=== PATIENT | female | born 1980 | race Two or more races ===

== ENCOUNTER → 2021-04-05 12:27 | Outpatient (CLI) | payer SELFPAY ==
--- NOTE | ~2021-04-05 | US_ITS ---
EXAMINATION: US OB <= 14 weeks fetus DATE: 04/05/2021 13:08 INDICATION: Encounter for screening for uncertain dates TECHNIQUE: Real-time pelvic transabdominal and transvaginal ultrasound was performed. COMPARISON: None. FINDINGS: The uterus measures 12.3 x 7.3 x 9.0 cm. There is an intrauterine gestational sac. A yolk sac is identified. heart motion is identified measuring 172 beats per minute (bpm) by M-mode Do ppler. The crown rump length measures 5.3 cm , which correlates with an estimated gestational a ge of 12 weeks and 0 day(s) (+/-) 8 day(s). There is no free fluid in the pelvis. IMPRESSION: 1. Live intrauterine with an estimated gestational age of 12 weeks and 0 day(s) (+/-) 8 day (s) and an estimated delivery date of 10/18/2021. Reviewed, dictated and finalized at location A. IMPRESSION: 1. Live intrauterine with an estimated gestational age of 12 weeks an d 0 day(s) (+/-) 8 day(s) and an estimated delivery date of 10/18/2021.
== END ==
PROVIDERS: Visit Provider Nurse Practitioner
DX: Z34.91 Encounter for supervision of normal pregnancy, unspecified, first trimester (principal); Z3A.12 12 weeks gestation of pregnancy
CPT/HCPCS: 76801

== ENCOUNTER → 2021-07-04 11:06 | Outpatient (CLI) | payer SELFPAY ==
--- NOTE | ~2021-07-04 | US_ITS ---
EXAMINATION: US OB /maternal detail DATE: 07/04/2021 11:48 INDICATION: anatomic survey. TECHNIQUE: Real-time ultrasound of the pelvis was performed. COMPARISON: Ultrasound 04/05/2021 FINDINGS: There is a single living fetus in breech presentation. The placenta is left posterior, 7.6 cm from t he cervix. heart rate is 139 beats per minute (bpm). The amniotic fluid volume is subjectively normal. The following biometric data were obtained: Biparietal diameter (BPD): 6.3 cm; head circumference (HC): 23.5 cm; abdominal circumference (AC): 20 .2 cm; femur length (FL): 4.8 cm. These measurements are concordant. Estimated weight is 810 g +/- 121 g, which correlates with 67th percentile when 10/18/21 is used as estimated date of delivery. As single measurements, these parameters are each equal to the following estimated gestational ages w ith ranges of +/- 2 standard deviations: BPD: 25 weeks 3 days (23 weeks 2 days - 27 weeks 5 days). HC: 25 weeks 3 days (23 weeks 3 days - 27 weeks 4 days). AC: 24 weeks 6 days (22 weeks 5 days - 27 weeks 0 days). FL: 26 weeks 2 days (24 weeks 1 days - 28 weeks 2 days). estimated gestational age based solely on measurements from this exam is 25 weeks 4 days +/- 1 weeks 5 days. The cerebral ventricles, cerebellum, cisterna magna, lip, and visualized portions of the spine are no rmal. The four-chamber heart view is normal. The outflow tracts are not well visualized. The diaphrag m, stomach, kidneys, and bladder are normal. There are two umbilical arteries to yield a 3-vessel cor d. The cord insertion is normal. IMPRESSION: 1. Single living fetus in breech presentation. 2. Estimated weight is 810 g +/- 121 g, which correlates with 67th percentile when 10/18/21 is used as estimated date of delivery. This date was set by ultrasound on 04/05/2021. 3. Normal anatomic survey. Reviewed, dictated and finalized at location A. R REPAIRER IMPRESSION: 1. Single living fetus in breech presentation. 2. Estimated weight is 810 g +/- 121 g, which correlates with 67th perce ntile when 10/18/21 is used as estimated date of delivery. This date was set by ultrasound on 04/05/2021. 3. Normal anatomic survey.
== END ==
PROVIDERS: Visit Provider Obstetrics & Gynecology Gynecology
DX: Z34.92 Encounter for supervision of normal pregnancy, unspecified, second trimester (principal); Z3A.25 25 weeks gestation of pregnancy
CPT/HCPCS: 76805

== ENCOUNTER 2021-08-14 08:15 | Outpatient (CLI) | payer OTHER, SELFPAY ==
--- NOTE | ~2021-08-14 | US_ITS ---
EXAMINATION: US OB follow up EXAM DATE: 08/14/2021 09:08 INDICATION: F/U On Outflow Tracts Not Well Visualized Outflow Tracts Not Well Visualized. 3rd trimes ter. TECHNIQUE: Pelvic obstetrical transabdominal sonogram was performed by a technologist. There are mu ltiple grayscale and Doppler images available for interpretation. Comparison is made to prior examina tion from 07/04/2021. FINDINGS: There is a single fetus identified in vertex presentation with a heart rate of 152 beats pe r minute. The placenta is located in the fundal position. There is no sonographic evidence of retrop lacental hemorrhage identified. There is subjectively expected amount of amniotic fluid. Cardiac out flow tracts were identified, sonographically normal. IMPRESSION: 1. Single fetus in vertex presentation with heart rate 152 beats per minute. 2. Sonographically normal cardiac outflow tracts. Reviewed, dictated and finalized at location A. ACKER
[2021-08-14 10:39] LABS: Hematocrit 38.6 % (37.0-47.0)
[2021-08-14 10:57] LABS: Glucose 1 Hour PP 50gm Dose 89 mg/dL
[2021-08-14 11:31] LABS: HIV 1/2 Ab P24 Ag Result Negative (Negative)
[2021-08-14 13:53] LABS: Vitamin D 25 Hydroxy 38.2 ng/mL
== END 2021-08-14 08:16 | disposition home or self-care (01) ==
PROVIDERS: Visit Provider Nurse Practitioner
DX: Z34.93 Encounter for supervision of normal pregnancy, unspecified, third trimester (principal); E55.9 Vitamin D deficiency, unspecified; Z3A.00 Weeks of gestation of pregnancy not specified
CPT/HCPCS: 36415; 76816; 82306; 82947; 85014; 85018; 86703; G0432

== ENCOUNTER 2021-09-19 15:23 | Outpatient (CLI) | payer OTHER, SELFPAY ==
--- NOTE | ~2021-09-19 | US_ITS ---
EXAMINATION: US OB follow up DATE: 09/19/2021 16:18 INDICATION: Estimated size greater than expected for estimated gestational age TECHNIQUE: Real-time ultrasound of the pelvis was performed. The interpreting radiologist was not pre sent for the study. COMPARISON: 08/14/2021 FINDINGS: There is a single living fetus in vertex presentation. The placenta is anterior. heart rate is 136 beats per minute (bpm). The amniotic fluid index is 13.3 cm, which is normal (5th%-95%: 7.9-24. 9 cm at 35 weeks estimated gestational age). The following biometric data were obtained: BPD: 8.6 cm -> 34 weeks 4 days Head circumference: 32.7 cm -> 37 weeks 1 days Abdominal circumference: 30.8 cm -> 34 weeks 5 days Femur length: 7.2 cm -> 36 weeks 4 days These measurements are concordant. Head circumference to abdominal circumference ratio: 1.06 (normal range 0.93-1.09). Estimated weight: 2695 g (+/-) 404 g or 5 lbs. 15 oz. (+/-) 14 oz. IMPRESSION: 1. Single living fetus in vertex presentation with heart rate of 136 bpm. 2. Normal amniotic fluid index of 13.3 cm. 3. Estimated weight is 47th percentile by Hadlock criteria when 10/20/2021 is used as the estima dotty date of delivery (JENNY). Please correlate with clinical information or earlier ultrasounds for mos t accurate JENNY. Reviewed, dictated and finalized at location A. ERS COMPENSATION ANALYST IMPRESSION: 1. Single living fetus in vertex presentation with heart rate of 136 bpm. 2. Normal amniotic fluid index of 13.3 cm. 3. Estimated weight is 47th percentile by Hadlock criteria when 10/20/2021 is used as the estimated date of delivery (JENNY). Please correlate with clinica l information or earlier ultrasounds for most accurate JENNY.
== END 2021-09-19 15:24 | disposition home or self-care (01) ==
LOC: ANHIMG 15:31
PROVIDERS: Visit Provider Obstetrics & Gynecology Gynecology
DX: O36.63X0 Maternal care for excessive fetal growth, third trimester, not applicable or unspecified (principal); Z3A.00 Weeks of gestation of pregnancy not specified
CPT/HCPCS: 76816

== ENCOUNTER 2021-10-13 04:58 | Inpatient (IN) | payer OTHER, SELFPAY ==
--- NOTE | 2021-10-09 16:07 | PC.NURSE ---
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
[2021-10-13] VITALS (107 sets, daily range): BP systolic 110–170; BP diastolic 44–130; PULSE 18–131; RESP 18; TEMP 36.5–37.3; O2SAT 91–100; BMI 59.4
[2021-10-13] MEDS: OXYTOCIN 30 UNITS/NS 500 ML 30 UNITS/500 ML BAG IV CONT (05:38)
[2021-10-13] MEDS: LACTATED RINGERS 1,000 ML 125 ML IV CONT ×3 (05:39→20:48)
--- NOTE | 2021-10-13 05:42 | LDADM ---
This patient, Ute Morrissey, was admitted to Labor/Delivery/Recovery 109 on 10/13/21 at 04:58. Plans for labor, pain management and were discussed with patient. Patient/family oriented to hospital policies and general routines including ID bracelet, bed and alarms, visiting hours, pain management, procedures, bathroom and other care routines, personal items, smoking policy, room service/diet and guest tray routines, infant security routines, and visiting hours. Patient/Family are encouraged to report perceived risks to care and to ask questions if they do not understand what they are told or what they should do. See OBIX for further documentation.
[2021-10-13 06:13] LABS: Basophils Percent Auto 0.2 % (0.2-1.2); Eosinophils Percent Auto 0.1 % (0-4.4); Hematocrit 41.6 % (37.0-47.0); Hemoglobin 13.8 g/dL (12.0-15.0); Immature Granulocyte Absolute 0.04 K/mm3 (0.00-0.031); Immature Granulocyte Percent A 0.5 % (0-0.5); Lymphocytes Absolute Auto 2.87 K/mm3 (0.9-3.2); Lymphocytes Percent Auto 33.3 % (18.3-44.2); Mean Corpuscular HGB Conc 33.2 g/dl (32-36); Mean Corpuscular Hemoglobin 30.5 pg (26-34); Mean Platelet Volume 10.2 fl (7.4-10.4); Monocytes Absolute Auto 0.4 K/mm3 (0.1-0.6); Monocytes Percent Auto 4.6 % (2.6-8.5); Neutrophils Absolute Auto 5.3 K/mm3 (1.3-6.7); Neutrophils Percent Auto 61.3 % (45.5-73.1); Platelet Count Result 329 k/mm3 (150-375); Red Blood Count 4.52 M/mm3 (4.2-5.4); Red Cell Distribution Width 13.7 % (11.5-14.5); White Blood Count 8.6 K/mm3 (4.5-10.0)
--- NOTE | 2021-10-13 07:52 | WPDOBADMIT ---
Obstetrics - Admit Note Admission Note: record reviewed. No pertinent additions to the history and/or any subsequent changes in the physical findings that are not consistent with the expected course of the were found. Additions to the history and/or subsequent changes in the physical findings follow. Here at 39 wks for MIL. Cervix 1-2/5-/-2 AROM with clear fluid. FHTs reactive.
--- NOTE | 2021-10-13 09:12 | P.PNAN_ITS ---
Anes - Eval Pre Procedure Procedure: labor epidural Date/Time: 10/13/21 09:12 Surgeon: joon Preop Diagnosis: pain during labor Pre Op Diagnosis: IOL Patient Data Age: 41 Gender: F Height: 1.68 m Weight: 167 kg Last Vital Signs Temp 36.6 C 10/13/21 08:53 Pulse 68 10/13/21 09:01 BP 127/73 10/13/21 09:01 Allergies Allergy/AdvReac Type Severity Reaction Status Date / Time No Known Allergies Allergy Verified 10/09/21 14:56 Home Medications Medication Instructions Recorded Confirmed Type [id number] fum-folic ac-om3 1 pkg PO DAILY 10/13/21 10/13/21 History [Daily ] Laboratory Tests 10/13/21 10/13/21 10/13/21 05:28 05:28 05:28 WBC 8.6 K/mm3 K/mm3 (4.5-10.0) RBC 4.52 M/mm3 M/mm3 (4.2-5.4) Hgb 13.8 g/dL g/dL (12.0-15.0) Hct 41.6 % % (37.0-47.0) MCV 92.0 fl fl (80-100) MCH 30.5 pg pg (26-34) MCHC 33.2 g/dl g/dl (32-36) RDW 13.7 % % (11.5-14.5) Plt Count 329 k/mm3 k/mm3 (150-375) MPV 10.2 fl fl (7.4-10.4) Immature Gran % (Auto) 0.5 % % (0-0.5) Neut % (Auto) 61.3 % % (45.5-73.1) Lymph % (Auto) 33.3 % % (18.3-44.2) [place] % (Auto) 4.6 % % (2.6-8.5) Eos % (Auto) 0.1 % % (0-4.4) Baso % (Auto) 0.2 % % (0.2-1.2) Lymph # (Auto) 2.87 K/mm3 K/mm3 (0.9-3.2) [place] # (Auto) 0.4 K/mm3 K/mm3 (0.1-0.6) Eos # (Auto) 0.0 K/mm3 K/mm3 (0-0.3) Baso # (Auto) 0.0 K/mm3 K/mm3 (0.0-0.1) Abs Immat Gran (auto) 0.04 K/mm3 H K/mm3 (0.00-0.031) Absolute Neuts (auto) 5.3 K/mm3 K/mm3 (1.3-6.7) Absolute Nucleated RBC 0.0 K/mm3 K/mm3 (0.0-0.012) Nucleated RBC % 0.0 % % (0.0-0.2) RPR Pending Blood Type O Positive Antibody Screen Negative Patient hx anesthesia problems: none Family hx anesthesia problems: none Results Review: All pre-operative results and documents have been reviewed as part of the pre-operative evaluation. [facility] Past Medical History Medical History (Updated 10/13/21 @ 09:13 by Ievt Be CRNA) IUP (intrauterine ), incidental Morbid obesity with BMI of 50.0-59.9, adult Family History Family History (Updated 10/09/21 @ 15:02 by Bereket Bo RN) Grandparent Cancer Grandparent Diabetes mellitus Social History Social History Smoking status: Never smoker Second hand tobacco smoke exposure: No Substance use: never Spiritual care concerns: No Exam Day of Procedure 10/13/21 09:12
[2021-10-13 23:27] LABS: Hematocrit 42.4 % (37.0-47.0); Hemoglobin 14.1 g/dL (12.0-15.0); Mean Corpuscular HGB Conc 33.3 g/dl (32-36); Mean Corpuscular Hemoglobin 30.9 pg (26-34); Mean Platelet Volume 9.6 fl (7.4-10.4); Platelet Count Result 295 k/mm3 (150-375); Red Blood Count 4.56 M/mm3 (4.2-5.4); Red Cell Distribution Width 13.6 % (11.5-14.5); White Blood Count 14.7 K/mm3 (4.5-10.0)
[2021-10-13 23:37] LABS: Alanine Aminotransferase 22 U/L (4-35); Albumin Level 3.6 g/dL (3.5-5.1); Alkaline Phosphatase 157 U/L (38-126); Anion Gap 11 mmol/L (8-16); Aspartate Amino Transferase 27 U/L (14-36); Bilirubin,Total 0.9 mg/dL (0.2-1.3); Blood Urea Nitrogen 16 mg/dL (7-17); Calcium 7.8 mg/dL (8.4-10.2); Carbon Dioxide 19 mmol/L (22-30); Chloride 104 mmol/L (98-107); Estimated CRCL calculation 119 ml/min; Estimated Glomerular Filt Rate > 60; Glucose 119 mg/dL (65-110); Potassium 4.1 mmol/L (3.4-5.0); Sodium 134 mmol/L (137-145); Uric Acid 6.5 mg/dL (2.5-7.5)
[2021-10-14] VITALS (18 sets, daily range): BP systolic 89–150; BP diastolic 27–99; PULSE 80–180; RESP 16; TEMP 36.3–37.4; O2SAT 98
--- NOTE | 2021-10-14 00:01 | P.PCNOB_ITS ---
OB - Delivery Note Procedure Delivery date: 10/13/21 Procedure: Induction method: AROM and Per Pitocin Protocol Delivery monitor: External FHT and External Uterine Route of delivery: Laceration Description: Perineal - 2nd Degree Delivery repair: vicryl (3-0) Specimen: Yes (placenta) Quantitative Blood Loss (ml): 100 Anesthesia type: Epidural Disposition: Floor [place] Baby Date of : 10/13/21 Weeks of gestation at delivery: 39 Infant gender: Male Weight (pounds): 6 Weight (ounces): 12 position: Right Occiput Anterior Placenta delivery description: Spontaneous Cord Vessel Description: 3 Vessels score one minute: 8 score five minutes: 9
--- NOTE | 2021-10-14 00:05 | PM.OBDSVD ---
DS: Admitting Diagnosis Discharge Date 10/15/21 Admitting Diagnosis 39 wks MIL DS: Discharge Diagnosis Discharge Diagnosis (1) (normal spontaneous vaginal delivery): Code(s): O80 - Encounter for full-term uncomplicated delivery Status: Acute OB - DS: Summary OB Procedures : Ultrasound OB Procedures Intrapartum: Spontaneous Vag Delivery OB Procedures: : None Peripartum Data Infant Delivery Method: Natural Vaginal Laceration Description: Perineal - 2nd Degree complications: none Status at Discharge Functional status at discharge: independent ambulation Overall status at discharge: patient is progressing back to baseline Time Spent with Patient Time attestation: Total time spent providing and/or coordinating discharge services: DS: Data Data Completed and Pending Labs on day of discharge: Labs from last 24 hours 10/13/21 10/13/21 10/13/21 23:21 23:21 05:28 WBC 14.7 H RBC 4.56 Hgb 14.1 Hct 42.4 MCV 93.0 MCH 30.9 MCHC 33.3 RDW 13.6 Plt Count 295 MPV 9.6 Immature Gran % (Auto) Neut % (Auto) Lymph % (Auto) [place] % (Auto) Eos % (Auto) Baso % (Auto) Lymph # (Auto) [place] # (Auto) Eos # (Auto) Baso # (Auto) Abs Immat Gran (auto) Absolute Neuts (auto) Absolute Nucleated RBC Nucleated RBC % Sodium 134 L Potassium 4.1 Chloride 104 Carbon Dioxide 19 L Anion Gap 11 BUN 16 Creatinine 0.90 Estim Creat Clear Calc 119 Estimated GFR > 60 Glucose 119 H Uric Acid 6.5 Calcium 7.8 L Total Bilirubin 0.9 AST 27 ALT 22 Alkaline Phosphatase 157 H Total Protein 7.0 Albumin 3.6 RPR Blood Type O Positive Antibody Screen Negative 10/13/21 10/13/21 05:28 05:28 WBC 8.6 RBC 4.52 Hgb 13.8 Hct 41.6 MCV 92.0 MCH 30.5 MCHC 33.2 RDW 13.7 Plt Count 329 MPV 10.2 Immature Gran % (Auto) 0.5 Neut % (Auto) 61.3 Lymph % (Auto) 33.3 [place] % (Auto) 4.6 Eos % (Auto) 0.1 Baso % (Auto) 0.2 Lymph # (Auto) 2.87 [place] # (Auto) 0.4 Eos # (Auto) 0.0 Baso # (Auto) 0.0 Abs Immat Gran (auto) 0.04 H Absolute Neuts (auto) 5.3 Absolute Nucleated RBC 0.0 Nucleated RBC % 0.0 Sodium Potassium Chloride Carbon Dioxide Anion Gap BUN Creatinine Estim Creat Clear Calc Estimated GFR Glucose Uric Acid Calcium Total Bilirubin AST ALT Alkaline Phosphatase Total Protein Albumin RPR Pending Blood Type Antibody Screen Discharge Plan Discharge Attending physician on discharge: Rasheeda Agarwal Discharging Clinician: Rasheeda Agarwal Anticipated Discharge Date/Time: 10/15/21 00:06 Patient Disposition: Home, Self-Care Activity: may shower and pelvic rest Diet: regular Patient Instructions: Antibiotic Form Stand Alone Forms: General Discharge Information Follow-up/Referrals: Rasheeda Agarwal MD [Physician] - 6 Weeks Discharge Medications: Continued Daily [id number] mg-mcg-mg Combo Pack 1 pkg PO DAILY RF: 0 Date of admission: 10/13/21 04:58 Primary Care Provider: PHYSICIAN,KEY MAKER Admitting Provider: Rasheeda Agarwal Attending physician on admission: Rasheeda Agarwal Condition: Stable Health Concerns: Plans BTL
[2021-10-14] MEDS: OXYTOCIN 30 UNITS/NS 500 ML 30 UNITS/500 ML BAG 125 UNITS IV CONT (00:09)
--- NOTE | 2021-10-14 03:37 | PC.NURSE ---
Rn educated patient on fall precautions and to call out when needing to go to the bathroom so an RN can be present. Patient verbalized understanding and agrees to plan of care. RN to bedside to assist patient to the bathroom for the first time. Patient found on the bathroom toilet upon arrival. She reports that she couldn't wait for a nurse to help her. RN educated patient that she needs to call out when needing to get up for assistance due to her epidural wearing off.
[2021-10-14] MEDS: IBUPROFEN 600 MG TABLET PO ×3 (05:15→22:56)
[2021-10-14] MEDS: BENZOCAINE 20% AER SPR (*SP) 56 GM CAN 1 SPRAY TOPICAL (05:16)
[2021-10-14] MEDS: WITCH HAZEL 40 PADS 1 PAD TOPICAL (05:16)
[2021-10-14 07:54] LABS: Rapid Plasma Reagin Non-Reactive (NonReactive)
[2021-10-14] MEDS: DOCUSATE SODIUM 100 MG CAPSULE PO ×2 (09:15→17:25)
[2021-10-14] MEDS: ACETAMINOPHEN 325 MG TABLET 650 MG PO ×2 (09:35→17:24)
[2021-10-14] MEDS: POLYSACCHARIDE IRON COMPLEX 150 MG CAPSULE PO (09:35)
--- NOTE | 2021-10-14 10:27 | PM.OBPNVD ---
OB - PN: Subj Subjective Date/time seen: 10/14/21 10:27 Patient comments: no complaints and pain well controlled baby status: doing well OB - PN: Obj Data Labs CBC & Chem 7: 10/13/21 23:21 10/13/21 23:21 Labs: Laboratory Results - last 24 hr 10/13/21 10/13/21 10/13/21 05:28 23:21 23:21 WBC 14.7 H RBC 4.56 Hgb 14.1 Hct 42.4 MCV 93.0 MCH 30.9 MCHC 33.3 RDW 13.6 Plt Count 295 MPV 9.6 Sodium 134 L Potassium 4.1 Chloride 104 Carbon Dioxide 19 L Anion Gap 11 BUN 16 Creatinine 0.90 Estim Creat Clear Calc 119 Estimated GFR > 60 Glucose 119 H Uric Acid 6.5 Calcium 7.8 L Total Bilirubin 0.9 AST 27 ALT 22 Alkaline Phosphatase 157 H Total Protein 7.0 Albumin 3.6 RPR Non-reactive OB - PN A/P Plan day: 1 Plan: routine care Time Spent With Patient Time: Total time spent is greater than 50% in coordination of care (as documented) at patient's floor/unit and/or counseling patient: Exam : Bimanual exam- vagina & uterus: other (Uterus firm, nt @U)
--- NOTE | 2021-10-14 15:09 | PC.NURSE ---
Breast pump provided due to ineffective feeding. Reviewed information regarding pump care, hand washing, nipple care and pumping 8 times in 24 hours (1-2 at night) for 10-15 minutes. Discussed she should pump after feedings/ feeding attempts If after feeding, rest for 5-10 minutes. Get something to eat/drink, use the restroom, then pump. Collection and storage of breastmilk per mom and baby guide. Encouraged mom to place infant skin to skin, breast massage and use hand expression and/or a breast pump in a relaxing atmosphere. Reviewed recording pumping schedule on the feeding sheet or pumping log. Referred to the visual handout along with the mom and baby guide as a resource and when to call a provider.
--- NOTE | 2021-10-15 03:02 | PC.NURSE ---
Daylight Savings Time For Daylight Savings Time Beginning in the Spring - Clocks are moved ahead. For [facility], the time of change occurs at 0200 hrs. Time is taken from the server service assistant. This entry on the patient's chart recognizes the change in time reflected during documentation. Example: 2 entries for vital signs may be charted for 0200 hrs.
[2021-10-15] MEDS: ACETAMINOPHEN 325 MG TABLET 650 MG PO (05:20)
[2021-10-15 08:00] VITALS: BP 137/78; PULSE 76; RESP 18; TEMP 36.7
[2021-10-15] MEDS: IBUPROFEN 600 MG TABLET PO (08:05)
[2021-10-15] MEDS: DOCUSATE SODIUM 100 MG CAPSULE PO (08:06)
[2021-10-15] MEDS: MULTIVIT/MIN/PREN/FOL AC/IRON TABLET 1 TAB PO (08:06)
--- NOTE | 2021-10-15 09:26 | PM.OBPNVD ---
OB - PN: Subj Subjective Date/time seen: 10/15/21 09:26 Patient comments: no complaints and pain well controlled baby status: doing well OB - PN: Obj Data Labs CBC & Chem 7: 10/13/21 23:21 10/13/21 23:21 OB - PN A/P Plan day: 2 Plan: routine care, discharge home, follow up 6 weeks and other (Plans BTL but has not signed papers yet. Declines interval BC.) Time Spent With Patient Time: Total time spent is greater than 50% in coordination of care (as documented) at patient's floor/unit and/or counseling patient: Exam : Bimanual exam- vagina & uterus: other (Uterus firm, nt @U)
--- NOTE | 2021-10-15 09:34 | WPDANLDNPN2 ---
Anes-Prog Note L&D-Neuraxial Date/Time: 10/15/21 09:34 Patient feedback: Patient satisfied with post-operative pain management.
== END 2021-10-15 11:15 | disposition home or self-care (01) | DRG 560 ==
LOC: ANHLDR 10-14 00:07 → ANHOB2 10-14 04:11
PROVIDERS: Admitting Provider Obstetrics & Gynecology Gynecology; Visit Provider Obstetrics & Gynecology Gynecology
DX: O36.8330 Maternal care for abnormalities of the fetal heart rate or rhythm, third trimester, not applicable or unspecified (principal); Z37.0 Single live birth; Z3A.39 39 weeks gestation of pregnancy; O70.1 Second degree perineal laceration during delivery
CPT/HCPCS: 36415; 80053; 84550; 85025; 85027; 86592; 86850; 86900; 86901; 88307; A9270; J2590; J2795; J7120

== ENCOUNTER 2024-01-10 22:40 | Emergency (ER) | payer OTHER, SELFPAY ==
[2024-01-10 22:47] VITALS: BP 162/96; PULSE 93; RESP 20; TEMP 36.8; O2SAT 98
--- NOTE | 2024-01-10 23:38 | ED.GENADULT ---
HPI - General Adult General Chief complaint: Vaginal Bleeding Stated complaint: VAGINAL BLEEDING Time Seen by Provider: 01/10/24 22:43 History of Present Illness HPI narrative: patient is a 43-year-old female who presents ER with vaginal bleeding and concern for possible . Reports that she has been having spotting starting 5 days ago. It turn into heavy bleeding over last 3 days. She is passing large clots today. No syncope. Also reports that there was concern for possible activation after being notified by her . She has been unable to squeeze any discharge or milk out of her breast. This caused her to be concern for which she has taken 3 negative tests. She reports that she did miss her period 6 weeks ago. Related Data Home Medications Medication Instructions Recorded Confirmed vits 75-iron 28 mg-folic 1 pkg PO DAILY 10/13/21 10/13/21 acid 800 mcg-omega3 440 mg oral pack Allergies Allergy/AdvReac Type Severity Reaction Status Date / Time No Known Allergies Allergy Verified 01/10/24 22:51 Review of Systems Review of Systems: All systems reviewed & are unremarkable except as noted in HPI and below Constitutional: Constitutional: Reports no additional constitutional complaints Gastrointestinal: Gastrointestinal: Reports no additional gastrointestinal complaints Genitourinary: Genitourinary: Reports abnormal vaginal bleeding, Denies dysuria, Denies flank pain and Denies vaginal discharge Musculoskeletal: Musculoskeletal: Reports no additional musculoskeletal complaints Integumentary/Breasts: Skin/Breast: Denies breast pain, Denies breast mass, Denies erythema and Denies rash PMF Past Medical History Medical History (Updated 01/11/24 @ 00:52 by Jose Maria Mann MD) IUP (intrauterine ), incidental Morbid obesity with BMI of 50.0-59.9, adult Family History Family History (Updated 10/09/21 @ 15:02 by Bereket Bo RN) Grandparent Cancer Grandparent Diabetes mellitus Social History Social History Smoking status: Never smoker Second hand tobacco smoke exposure: No Substance use: never Spiritual care concerns: No Exam Narrative: GENERAL: Well-appearing, morbidly obese, and in no acute distress. HEAD: Normocephalic, atraumatic. ENT: Mucous membranes moist. CHEST: Clear to auscultation. No respiratory distress. HEART: Regular rate and rhythm. Normal peripheral pulses. ABDOMEN: Soft, nontender, nondistended. : Small amount of blood within the vagina that was removed with 1 swab. no discharge, normal cervix. Normal external genitalia. EXTREMITIES: Normal range of motion. No edema. SKIN: Warm, dry, no rash. NEURO: Alert and oriented x3. PSYCH: Normal mood and affect. Course Vital Signs Vital signs: Vital Signs Temperature 98.3 F 01/10/24 22:47 Pulse Rate 93 01/10/24 22:47 Respiratory Rate 01/10/24 22:47 Blood Pressure 162/96 H 01/10/24 22:47 Pulse Oximetry 98 01/10/24 22:47 Oxygen Delivery Room Air 01/10/24 22:47 Temperature 98.3 F 01/10/24 22:47 Pulse Rate 93 01/10/24 22:47 Respiratory Rate 01/10/24 22:47 Blood Pressure 162/96 H 01/10/24 22:47 Pulse Oximetry 98 01/10/24 22:47 Oxygen Delivery Room Air 01/10/24 22:47 Medical Decision Making Vital Signs Vital Signs: Vital Signs Temperature 98.3 F 01/10/24 22:47 Pulse Rate 93 01/10/24 22:47 Respiratory Rate 01/10/24 22:47 Blood Pressure 162/96 H 01/10/24 22:47 Pulse Oximetry 98 01/10/24 22:47 Oxygen Delivery Room Air 01/10/24 22:47 Temperature 98.3 F 01/10/24 22:47 Pulse Rate 93 01/10/24 22:47 Respiratory Rate 01/10/24 22:47 Blood Pressure 162/96 H 01/10/24 22:47 Pulse Oximetry 98 01/10/24 22:47 Oxygen Delivery Room Air 01/10/24 22:47 Lab Data 01/10/24 23:55 01/10/24 23:55 Labs: Lab Results 01/10/24 Range/Units
[2024-01-11 00:01] LABS: Basophils Absolute Auto 0.1 K/mm3 (0.0-0.1); Basophils Percent Auto 0.8 % (0.2-1.2); Eosinophils Absolute Auto 0.1 K/mm3 (0-0.3); Eosinophils Percent Auto 0.8 % (0-4.4); Hematocrit 35.2 % (37.0-47.0); Hemoglobin 11.2 g/dL (12.0-15.0); Immature Granulocyte Absolute 0.01 K/mm3 (0.00-0.031); Immature Granulocyte Percent A 0.2 % (0-0.5); Lymphocytes Absolute Auto 2.91 K/mm3 (0.9-3.2); Lymphocytes Percent Auto 47.5 % (18.3-44.2); Mean Corpuscular HGB Conc 31.8 g/dl (32-36); Mean Corpuscular Hemoglobin 30.4 pg (26-34); Mean Corpuscular Volume 95.7 fl (80-100); Mean Platelet Volume 8.8 fl (7.4-10.4); Monocytes Absolute Auto 0.5 K/mm3 (0.1-0.6); Monocytes Percent Auto 7.8 % (2.6-8.5); Neutrophils Absolute Auto 2.6 K/mm3 (1.3-6.7); Neutrophils Percent Auto 42.9 % (45.5-73.1); Platelet Count Result 284 k/mm3 (150-375); Red Blood Count 3.68 M/mm3 (4.2-5.4); Red Cell Distribution Width 13.2 % (11.5-14.5); White Blood Count 6.1 K/mm3 (4.5-10.0)
[2024-01-11 00:15] LABS: Alanine Aminotransferase 12 U/L (6-35); Albumin Level 3.8 g/dL (3.5-5.1); Alkaline Phosphatase 71 U/L (38-126); Anion Gap 6 mmol/L (4-12); Aspartate Amino Transferase 19 U/L (14-36); Bilirubin,Total 0.6 mg/dL (0.2-1.3); Blood Urea Nitrogen 19 mg/dL (7-17); Calcium 8.2 mg/dL (8.4-10.2); Carbon Dioxide 26 mmol/L (22-30); Chloride 106 mmol/L (98-107); Estimated CRCL calculation 127 ml/min; Estimated Glomerular Filt Rate > 60; Glucose 91 mg/dL (65-110); Potassium 3.8 mmol/L (3.4-5.0); Sodium 138 mmol/L (137-145)
[2024-01-11 00:57] VITALS: BP 139/87; PULSE 91; RESP 20; O2SAT 100
== END 2024-01-11 01:08 | disposition home or self-care (01) ==
PROVIDERS: Emergency Provider Emergency Medicine
DX: N93.8 Other specified abnormal uterine and vaginal bleeding (principal); E66.01 Morbid (severe) obesity due to excess calories; Z68.43 Body mass index [BMI] 50.0-59.9, adult
CPT/HCPCS: 36415; 80053; 81025; 85025; 99284

== ENCOUNTER 2024-01-23 14:54 | Outpatient (CLI) | payer OTHER, SELFPAY ==
[2024-01-23 15:18] LABS: Hemoglobin 7.7 g/dL (12.0-15.0); Mean Corpuscular HGB Conc 30.8 g/dl (32-36); Mean Corpuscular Hemoglobin 29.4 pg (26-34); Mean Corpuscular Volume 95.4 fl (80-100); Mean Platelet Volume 8.5 fl (7.4-10.4); Platelet Count Result 429 k/mm3 (150-375); Red Blood Count 2.62 M/mm3 (4.2-5.4)
[2024-01-23 15:55] LABS: Free T4 Free Thyroxine 1.17 ng/mL (0.78-2.19)
[2024-01-23 16:02] LABS: Thyroid Stimulating Hormone 0.458 uIU/mL (0.465-4.680)
[2024-01-24 11:53] LABS: Prolactin 11.4 ng/mL
== END 2024-01-23 14:55 | disposition home or self-care (01) ==
LOC: ANHLAB 14:55
PROVIDERS: Visit Provider Nurse Practitioner Family
DX: N93.9 Abnormal uterine and vaginal bleeding, unspecified (principal)
CPT/HCPCS: 36415; 84146; 84439; 84443; 85027

== ENCOUNTER 2024-01-24 15:26 | Observation (INO) | payer OTHER, SELFPAY ==
[2024-01-24] VITALS (9 sets, daily range): BP systolic 106–153; BP diastolic 54–81; PULSE 82–114; RESP 16–20; TEMP 36.4–36.9; O2SAT 98–100; BMI 58.3
--- NOTE | ~2024-01-24 | US_ITS ---
US pelvic complete w TV DATE: 01/25/2024 10:15 INDICATION: Heavy vaginal bleeding for 3 weeks. Symptomatic anemia. TECHNIQUE: Real-time imaging via transabdominal and transvaginal approaches COMPARISON: None FINDINGS: The uterus measures approximately 9.2 cm height, 4.9 cm anteroposterior and 5.6 in greatest transverse dimension. The central endometrial echo complex measures up to 17 mm AP dimension, some of which appears to be d ue to blood layering within the endometrial cavity; differential diagnosis includes endometrial hyper plasia, polyps and/or malignancy. Right ovary measures 3.4 x 2.5 x 2.1 cm, with vascular flow. Left ovary measures 4.7 x 2.4 x 3.4 cm, with vascular flow, with a 3.2 x 1.6 x 3.0 cm simple cyst. No pelvic mass or abnormal free pelvic fluid collection is evident. IMPRESSION: Probable accumulation of blood within the endometrial cavity, which measures up to 17 mm AP dimension. Endometrial hyperplasia, polyp and/or malignancy cannot be excluded 3.2 cm left ovarian cyst Reviewed, dictated and finalized at [facility]. Reviewed, dictated and finalized at [facility]. IMPRESSION: Probable accumulation of blood within the endometrial cavity, which measures up to 17 mm AP dimension. Endometrial hyperplasia, polyp and/or malig martin cannot be excluded 3.2 cm left ovarian cyst
--- NOTE | 2024-01-24 15:40 | ED.GENADULT ---
HPI - General Adult General Chief complaint: Recheck/Abnormal Lab/Rx <Vishal Tobar PA-C - Last Filed: 01/24/24 15:41> Stated complaint: low hgb 7 <Vishal Tobar PA-C - Last Filed: 01/24/24 15:41> Time Seen by Provider: 01/24/24 15:39 <Vishal Tobar PA-C - Last Filed: 01/24/24 15:41> Focused HPI: This is a 43-year-old female who presents to the ED for chief complaint of low hemoglobin. She had outpatient labs drawn that showed hemoglobin of 7.7. She has had consistent vaginal bleeding since around January 04. She was seen previously in the ER was able to be discharged. Patient states that she saw Dr. Lanza (OBGYN) recently and was told she may need a D&C. Patient states that she had cramps initially but has had no cramps today. She is primarily here because she was told to come with her low hemoglobin. Endorses fatigue and general weakness. Denies chest pain, shortness of breath, cough, abdominal pain, nausea, vomiting, syncope. GENERAL: Well-appearing, well-nourished, and in no acute distress. HEAD: Normocephalic, atraumatic. CHEST: Clear to auscultation. No respiratory distress. HEART: Regular rate and rhythm. ABD: No abdominal tenderness or distention NEURO: Alert and oriented x3. Patient screened in triage and initial orders placed. Additional care and disposition to be based upon diagnostic testing and treatment. <Vishal Tobar PA-C - Last Filed: 01/24/24 15:41> Source: patient <Vishal Tobar PA-C - Last Filed: 01/24/24 15:41> Mode of arrival: ambulatory <Vishal Tobar PA-C - Last Filed: 01/24/24 15:41> Limitations: no limitations <JORDAN Ratliff Last Filed: 01/24/24 15:41> History of Present Illness HPI narrative: Patient 43-year-old female who presents emergency department chief complaint of anemia. The patient reports he has been having abnormal uterine bleeding since the beginning of this month. The patient reports she was [facility] and was found to still be bleeding and had outpatient blood work done yesterday that showed her have a hemoglobin of 7.7. The patient reports he has been getting lightheaded reports she feels very weak and reports that she continues to bleed. <Isael Mahoney MD - Last Filed: 01/24/24 18:13> Related Data Home medications: Home Medications Medication Instructions Recorded Confirmed vits 75-iron 28 mg-folic 1 pkg PO DAILY 10/13/21 01/16/24 acid 800 mcg-omega3 440 mg oral pack <Vishal Tobar PA-C - Last Filed: 01/24/24 15:41> Allergies/adverse reactions: Allergies Allergy/AdvReac Type Severity Reaction Status Date / Time No Known Allergies Allergy Verified 01/24/24 15:34 <Vishal Tobar PA-C - Last Filed: 01/24/24 15:41> Review of Systems Review of Systems: A 10 system review of systems was completed on the patient and is negative except for what is stated in the HPI. Nursing and ancillary documentation was reviewed. <Isael Mahoney MD - Last Filed: 01/24/24 18:13> PMFSH Past Medical History Medical History: Medical History IUP (intrauterine ), incidental Morbid obesity with BMI of 50.0-59.9, adult <Vishal Tobar PA-C - Last Filed: 01/24/24 15:41> Family History Family History: Family History Grandparent Cancer Grandparent Diabetes mellitus <Vishal Tobar PA-C - Last Filed: 01/24/24 15:41> Social History Social History: Social History Smoking status: Never smoker Second hand tobacco smoke exposure: No Substance use: never Spiritual care concerns: No <Vishal Tobar PA-C - Last Filed: 01/24/24 15:41> Exam Narrative: GENERAL: Well-appearing, well-nourished, and in no acute distress. HEAD: Normoceph
[2024-01-24 15:56] LABS: Basophils Percent Auto 0.4 % (0.2-1.2); Eosinophils Percent Auto 0.4 % (0-4.4); Hematocrit 23.6 % (37.0-47.0); Hemoglobin 7.2 g/dL (12.0-15.0); Immature Granulocyte Absolute 0.02 K/mm3 (0.00-0.031); Immature Granulocyte Percent A 0.3 % (0-0.5); Lymphocytes Absolute Auto 3.33 K/mm3 (0.9-3.2); Lymphocytes Percent Auto 42.2 % (18.3-44.2); Mean Corpuscular HGB Conc 30.5 g/dl (32-36); Mean Corpuscular Volume 95.2 fl (80-100); Mean Platelet Volume 8.3 fl (7.4-10.4); Monocytes Absolute Auto 0.6 K/mm3 (0.1-0.6); Monocytes Percent Auto 7.1 % (2.6-8.5); Neutrophils Absolute Auto 3.9 K/mm3 (1.3-6.7); Neutrophils Percent Auto 49.6 % (45.5-73.1); Platelet Count Result 409 k/mm3 (150-375); Red Blood Count 2.48 M/mm3 (4.2-5.4); White Blood Count 7.9 K/mm3 (4.5-10.0)
[2024-01-24 16:06] LABS: Alanine Aminotransferase 11 U/L (6-35); Albumin Level 3.9 g/dL (3.5-5.1); Alkaline Phosphatase 68 U/L (38-126); Anion Gap 4 mmol/L (4-12); Aspartate Amino Transferase 18 U/L (14-36); Bilirubin,Total 0.5 mg/dL (0.2-1.3); Blood Urea Nitrogen 18 mg/dL (7-17); Carbon Dioxide 28 mmol/L (22-30); Chloride 106 mmol/L (98-107); Estimated CRCL calculation 128 ml/min; Estimated Glomerular Filt Rate > 60; Glucose 102 mg/dL (65-110); INR 1.1; Potassium 3.7 mmol/L (3.4-5.0); Prothrombin Time 14.2 Seconds (11.1-14.7); Sodium 138 mmol/L (137-145)
[2024-01-24 16:07] LABS: Partial Thromboplastin Time 31.6 Seconds (22.3-36.8)
[2024-01-24 16:13] LABS: Appearance Urine Clear (Clear); Bacteria Urine None Seen /hpf; Bilirubin Urine Negative (Negative); Blood Urine 2+ (Negative); Color Urine Yellow (Yellow); Glucose Urine UA Negative (Negative); Ketones Urine Negative (Negative); Leukocyte Esterase Ur Negative LEU/UL (Negative); Nitrate Urine Negative (Negative); Protein Urine Trace mg/dL (Negative); RBC Urine 21-50 /hpf (0-2); Squamous Epithelial Cell Urine None Seen /hpf (Few); WBC Urine 0-5 /hpf (0-3)
[2024-01-24 16:14] LABS: Specific Grav Ur 1.032 (1.001-1.035)
[2024-01-24 16:15] LABS: Add Urine Microscopic? YES
[2024-01-24] MEDS: SODIUM CHLORIDE 0.9% IV 250 ML 30 ML IV CONT (19:01)
[2024-01-24] MEDS: medroxyPROGESTERone ACETATE 10 MG TABLET PO (19:02)
--- NOTE | 2024-01-24 19:11 | PC.NURSE ---
1910-REPORT CALLED TO KALEB RODRIGUEZ
--- NOTE | 2024-01-24 19:23 | PC.NURSE ---
192-CONSENT FOR BLOOD TRANSFUSION/BLOOD COMPONENT SIGNED BY PATIENT.
--- NOTE | 2024-01-24 19:53 | ADMGEN ---
This patient, Ute Morrissey, was admitted to Medical Room 249-01. Patient/family oriented to hospital policies and general routines including ID bracelet, bed and alarms, visiting hours, pain management, procedures, bathroom and other care routines, personal items, smoking policy, room service/diet, and visiting hours. Information on how to activate the Rapid Response Team has been discussed. Patient/Family are encouraged to report perceived risks to care and to ask questions if they do not understand what they are told or what they should do.
[2024-01-25] VITALS (14 sets, daily range): BP systolic 95–132; BP diastolic 50–72; PULSE 68–94; RESP 14–20; TEMP 36.1–36.7; O2SAT 99–100
[2024-01-25] MEDS: LACTATED RINGERS 1,000 ML 125 ML IV CONT (02:41)
[2024-01-25 04:58] LABS: Hematocrit 26.2 % (37.0-47.0); Hemoglobin 8.3 g/dL (12.0-15.0)
--- NOTE | 2024-01-25 08:37 | PM.IMHP ---
H&P: HPI History of Present Illness Date/Time: 01/25/24 08:37 Chief Complaint: abnormal uterine bleeding symptomatic anemia Narrative: 43-year-old female who presents to the ER with abnormal uterine bleeding leading to symptomatic anemia. Patient has been dealing with abnormal uterine bleeding for some time. Patient initially presented to the emergency room on 01/10/2024 with dysfunctional uterine bleeding. Patient had also thought she might of been at that time. Patient was found to be hemodynamically stable at that time. Patient's hemoglobin was 11. Patient had outpatient follow-up. Patient states she has continued to have abnormal bleeding. Patient states every other days she will have large amounts of blood in gushes of blood. Patient states she is also passing clots. Patient is not on any hormonal contraceptives. Patient had negative test. Patient was recommended progesterone contraceptive pills as outpatient patient never initiated pills. Patient's H&H has been trending downward. Last outpatient labs showed a hemoglobin of 7.7 down from 11. Patient reports she was having increased fatigue and dizziness. Patient was then sent to the emergency room for blood transfusion. Patient received Provera yesterday to help stop acute bleeding. She was admitted overnight for observation and blood replacement. The patient states her bleeding has improved overnight. She is still bleeding but states the volume is much less. Review of Systems Review of Systems: All systems reviewed & are unremarkable except as noted in HPI and below PMFSH Past Medical History Medical History IUP (intrauterine ), incidental Morbid obesity with BMI of 50.0-59.9, adult Family History Family History Grandparent Cancer Grandparent Diabetes mellitus Social History Social History Smoking status: Never smoker Second hand tobacco smoke exposure: No Alcohol intake: never Substance use: never Do You Feel Safe in your Home?: Yes Lack of Transportation: No Lack of Food: Never True Current Housing: I Have Housing Concerned About Future Housing: No Difficulty Paying Gas/Electric Bills: No Difficulty Paying for Meds: No Currently Unemployed: No Education: Associate Degree Difficulty w/ Childcare or Family Care: No Spiritual care concerns: No Meds Home Medications and Allergies Home Medications Medication Instructions Recorded Confirmed Type No Home Medications 01/24/24 01/24/24 History Allergies Allergy/AdvReac Type Severity Reaction Status Date / Time No Known Allergies Allergy Verified 01/24/24 20:12 Vital Signs Vital Signs - 24 hr 01/24/24 15:31 01/24/24 18:45 01/24/24 19:42 Temperature 97.6 F 98.5 F Pulse Rate 114 H 82 87 Respiratory Rate 16 20 20 Blood Pressure 153/81 H 127/79 112/68 Pulse Oximetry 98 100 100 Oxygen Delivery Room Air 01/24/24 20:47 01/24/24 20:51 01/24/24 21:00 Temperature 97.7 F 97.7 F 97.5 F L Pulse Rate 87 88 86 Respiratory Rate 18 18 20 Blood Pressure 121/63 121/63 142/81 H Pulse Oximetry 100 100 99 Oxygen Delivery 01/24/24 22:00 01/24/24 23:00 01/24/24 23:54 Temperature 97.9 F 97.9 F 97.8 F Pulse Rate 86 89 85 Respiratory Rate 18 18 17 Blood Pressure 114/54 L 106/56 L 118/60 Pulse Oximetry 100 100 99 Oxygen Delivery 01/25/24 00:21 01/25/24 00:34 01/25/24 00:35 Temperature 97.8 F 97.6 F 98.1 F Pulse Rate 85 73 81 Respiratory Rate 17 18 18 Blood Pressure 118/60 123/59 L 117/60 Pulse Oximetry 99 100 100 Oxygen Delivery 01/25/24 01:35 01/25/24 04:00 Temperature 97.7 F 97.9 F Pulse Rate 81 82 Respiratory Rate 17 18 Blood Pressure 95/60 L 95/50 L Pulse Oximetry 100 100 Oxygen Delivery Exam Const: General:
--- NOTE | 2024-01-25 12:12 | WPDANESEPP ---
Anes - Eval Pre Procedure Procedure: Operation Date: 01/25/24 12:30 Proposed Procedures p D&C Suction and Matthieu Veliz MD Date/Time: 01/25/24 12:12 Surgeon: dwayne Preop Diagnosis: Abnormal Uterine Bleeding Pre Op Diagnosis: symptomatic anemia, abnormal uterine bleeding Patient Data Age: 43 Gender: F Height: 1.68 m Weight: 163.9 kg Last Vital Signs Temp 97.9 F 01/25/24 04:00 Pulse 82 01/25/24 04:00 Resp 18 01/25/24 04:00 BP 131/59 L 01/25/24 09:07 Pulse Ox 100 01/25/24 04:00 O2 Del Method Room Air 01/25/24 09:00 Allergies Allergy/AdvReac Type Severity Reaction Status Date / Time No Known Allergies Allergy Verified 01/24/24 20:12 Home Medications Medication Instructions Recorded Confirmed Type No Home Medications 01/24/24 01/24/24 History Laboratory Tests 01/24/24 01/24/24 01/25/24 15:43 16:03 04:20 WBC 7.9 K/mm3 (4.5-10.0) RBC 2.48 L M/mm3 (4.2-5.4) Hgb 7.2 L g/dL 8.3 L g/dL (12.0-15.0) (12.0-15.0) Hct 23.6 L % 26.2 L % (37.0-47.0) (37.0-47.0) MCV 95.2 fl (80-100) MCH 29.0 pg (26-34) MCHC 30.5 L g/dl (32-36) RDW 13.0 % (11.5-14.5) Plt Count 409 H k/mm3 (150-375) MPV 8.3 fl (7.4-10.4) Immature Gran % (Auto) 0.3 % (0-0.5) Neut % (Auto) 49.6 % (45.5-73.1) Lymph % (Auto) 42.2 % (18.3-44.2) [place] % (Auto) 7.1 % (2.6-8.5) Eos % (Auto) 0.4 % (0-4.4) Baso % (Auto) 0.4 % (0.2-1.2) Lymph # (Auto) 3.33 H K/mm3 (0.9-3.2) [place] # (Auto) 0.6 K/mm3 (0.1-0.6) Eos # (Auto) 0.0 K/mm3 (0-0.3) Baso # (Auto) 0.0 K/mm3 (0.0-0.1) Abs Immat Gran (auto) 0.02 K/mm3 (0.00-0.031) Absolute Neuts (auto) 3.9 K/mm3 (1.3-6.7) Absolute Nucleated RBC 0.000 K/mm3 (0.0-0.012) Nucleated RBC % 0.0 % (0.0-0.2) PT 14.2 Seconds (11.1-14.7) INR 1.1 APTT 31.6 Seconds (22.3-36.8) Sodium 138 mmol/L (137-145) Potassium 3.7 mmol/L (3.4-5.0) Chloride 106 mmol/L (98-107) Carbon Dioxide 28 mmol/L (22-30) Anion Gap 4 mmol/L (4-12) BUN 18 H mg/dL (7-17) Creatinine 0.80 mg/dL (0.7-1.0) Estim Creat Clear Calc 128 ml/min Estimated GFR > 60 (59 - ) Glucose 102 mg/dL (65-110) Calcium 8.0 L mg/dL (8.4-10.2) Total Bilirubin 0.5 mg/dL (0.2-1.3) AST 18 U/L (14-36) ALT 11 U/L (6-35) Alkaline Phosphatase 68 U/L (38-126) Total Protein 7.0 g/dL (6.3-8.2) Albumin 3.9 g/dL (3.5-5.1) Urine Color Yellow (Yellow) Urine Appearance Clear (Clear) Urine pH 5.0 (5.0-9.0) Ur Specific [place] 1.032 (1.001-1.035) Urine Protein Trace mg/dL (Negative) Urine Glucose (UA) Negative mg/dL (Negative) Urine Ketones Negative mg/dL (Negative) Ur Blood (Man) 2+ H (Negative) Urine Nitrate Negative (Negative) Urine Bilirubin Negative (Negative) Urine Urobilinogen 1.0 mg/dL (<2.0) Leukocyte Esterase Rfl Negative HNAG/UL (Negative) Urine RBC 21-50 H /hpf (0-2) Urine WBC 0-5 /hpf (0-3) Ur Squamous Epith Cells None seen /hpf (Few) Urine Bacteria None seen /hpf Urine Casts 3-5 Blood Type O Positive Antibody Screen Negative Crossmatch See Detail Patient hx anesthesia problems: none Family hx anesthesia problems: none Results Review: All pre-operative results and documents have been reviewed as part of the pre-operative evaluation. [facility] Past Medical History Medical History (Review
--- NOTE | 2024-01-25 12:23 | WPDHPUPDATE1 ---
History and Physical Update Update Date/Time: 01/25/24 12:23 43-year-old female with abnormal uterine bleeding leading to symptomatic anemia. Patient was hospitalized for symptomatic anemia and received blood transfusion. Pelvic ultrasound returned with a thickened endometrial complex. Given patient's amount of bleeding, recommended surgical management via D&C. Patient agreeable with plan. Will proceed with above-mentioned procedure pelvis US:Probable accumulation of blood within the endometrial cavity, which measures up to 17 mm AP dimension. Endometrial hyperplasia, polyp and/or malignancy cannot be excluded 3.2 cm left ovarian cyst History and Physical has been reviewed, including an updated exam of the patient. There are NO changes in the patient's condition. Risks, benefits, and alternatives have been discussed and questions answered. Patient agrees to proceed with procedure.
--- NOTE | 2024-01-25 12:30 | PC.NURSE ---
Patient to OR via bed. Report given to KALEB Gonzales.
--- NOTE | 2024-01-25 12:34 | P.PNAN_ITS ---
Anes - Eval Final PreProcedure Day of Procedure 01/25/24 12:34 Patient weight: super morbidly obese Heart: regular rate and rhythm Lungs: clear to auscultation Airway: Mallampati scale class II Neurological: alert and oriented Last oral intake: >/= 8 hours ASA classification: III Emergent: yes Anesthetic plan: proceed Anesthesia type and monitoring: general LMA and standard monitoring Results Review: All pre-operative results and documents have been reviewed as part of the pre- operative evaluation. Informed Consent: The patient's anesthetic plan and its attendant risks and benefits were discu ssed with the patient/family/POA. Questions were solicited and answers provided to the satisfaction of the patient/family/POA.
[2024-01-25] MEDS: LACTATED RINGERS 1,000 ML 30 ML IV CONT (13:05)
--- NOTE | 2024-01-25 13:09 | W.PM.PROC2 ---
Procedure Note - Detailed Date of Procedure 01/25/24 Pre-op Diagnosis symptomatic anemia, abnormal uterine bleeding Post-op Diagnosis Same Procedure Performed hysteroscopy dilation & curettage Surgeon Aneudy Veliz MD Anesthesia General Indications abnormal uterine bleeding Findings globally thickened endometrium. Normal tubal ostia bilaterally Description of Procedure Ute Morrissey presents for hysteroscopy D&C for AUB leading to symptomatic anemia. She was counseled as to the indications, risks, benefits, and alternatives to surgery, with the risks including bleeding, infection, damage to surrounding organs, VTE, and complications of anesthesia. Her verbal and written consent was obtained. PROCEDURE: The patient was taken to the OR and general anesthesia induced. SCDs were on and working. She was prepped and draped in Fabian stirrups with support of the back and bilateral lower extremities. I/O catheterization performed of the bladder. The above findings were noted. A single tooth tenaculum was placed on the anterior lip of the cervix. Hysteroscopy, using a normal saline medium, was performed and showed the above findings. Sharp uterine curettage was then performed and tissue placed on Telfa. The tenaculum was removed and hemostasis was observed. The patient tolerated the procedure well. Sponge, lap, and needle counts were correct. The patient had SCDs on throughout the case for VTE prophylaxis. The patient was taken to the recovery room in stable condition. Estimated Blood Loss 20 Urine Output 100 Drains No Packing No Pathology Yes (endometrial curettings ) Complications No immediate complications Condition Stable Disposition PACU [facility] Billing Surgery - Charge Forward: Surgery Billing
--- NOTE | 2024-01-28 15:40 | PM.DS ---
DS: Admitting Diagnosis Discharge Date 01/25/24 Admitting Diagnosis abnormal uterine bleeding symptomatic anemia DS: Discharge Diagnosis Discharge Diagnosis (1) Abnormal uterine bleeding (AUB): Code(s): N93.9 - Abnormal uterine and vaginal bleeding, unspecified Status: Acute (2) Symptomatic anemia: Code(s): D64.9 - Anemia, unspecified Status: Acute DS: Summary Hospital Course Reason for hospitalization: Abnormal uterine bleeding leading to symptomatic anemia Hospital Course: 43 yo female who had been dealing with AUB. Outpatient H/H showed anemia. Pt reports fatigue. Pt was recommended for hospitalization for blood transfusion. Pt was admitted and received 2 u pRBCs. Pelvic US was obtained and showed a thickened endometrial lining. Bleeding had been stabilized with Provera. Pt then underwent hysteroscopy D&C for both diagnostic and therapeutic purposes. Procedure was uncomplicated and patient was discharged home in stable condition. Time Spent with Patient Time attestation: Total time spent providing and/or coordinating discharge services: DS: Data Data Completed and Pending Completed studies during hospitalization: Pending at discharge 01/25/24 12:54 Surgical [PTH] Routine Discharge Plan Discharge Consulting providers: Tanner Fowler; Autumn Elena; Lalit Sommer Discharging Clinician: Aneudy Veliz Patient Disposition: Home, Self-Care Activity: may shower, as tolerated and pelvic rest Diet: regular Discharge Instructions: Some Complications to Watch for: ? Excessive incisional or vaginal drainage (more than one pad an hour). Additional Instructions: ? Expect some vaginal spotting for 2-4 days. ? Nothing vaginally (i.e. douching, intercourse, tampons) until follow up visit. Patient Instructions: Antibiotic Form, Dilation and Curettage (DC) Stand Alone Forms: General Discharge Information Follow-up/Referrals: Aneudy Veliz MD [Physician] - 2 Weeks Discharge Medications: New acetaminophen 500 mg tablet 500 mg PO Q6H PRN (Reason: pain) Qty: 30 0RF ibuprofen 600 mg tablet 600 mg PO Q6H PRN (Reason: pain) Qty: 30 0RF ferrous sulfate 325 mg (65 mg iron) tablet 325 mg PO BID Qty: 90 1RF docusate sodium [Stool Softener] 100 mg capsule 100 mg PO DAILY Qty: 30 0RF norethindrone (contraceptive) 0.35 mg tablet 0.35 mg PO DAILY Qty: 84 0RF Date of admission: 01/24/24 18:13 Primary Care Provider: UNKNOWN,DOCTOR Admitting Provider: Aneudy Veliz Attending physician on admission: Aneudy Veliz Condition: Stable
== END 2024-01-25 16:20 | disposition home or self-care (01) ==
LOC: ANHED 18:13 → ANH2MED 18:45
PROVIDERS: Physician Assistant; Admitting Provider Student in an Organized Health Care Education/Training Program; Emergency Provider Emergency Medicine; Visit Provider Student in an Organized Health Care Education/Training Program
PROC: (CPT 58558; principal; 2024-01-25 12:30)
DX: N85.01 Benign endometrial hyperplasia (principal); N93.9 Abnormal uterine and vaginal bleeding, unspecified; D62 Acute posthemorrhagic anemia; E66.01 Morbid (severe) obesity due to excess calories; Z68.43 Body mass index [BMI] 50.0-59.9, adult
CPT/HCPCS: 58558; 36415; 36430; 76830; 76856; 80053; 81001; 81025; 85014; 85018; 85025; 85610; 85730; 86850; 86900; 86901; 86923; 88305; 99285; A9270; G0378; G0379; J2250; J2405; J2704; J3010; J7050; J7120; P9016